=== PATIENT | female | born 2005 | race Caucasian/White ===

== ENCOUNTER 2024-08-24 19:45 | Emergency (ER) | payer MEDICAID ==
[2024-08-24] MEDS ORDERED: Sodium Chloride 0.9% 10 ML Syringe FLUSH PRN (20:19)
[2024-08-24] MEDS: diphenhydrAMINE 50 MG/ML SDV IVPUSH ONE (20:55)
[2024-08-24] MEDS: Ketorolac 30 MG/ML SDV IVPUSH ONE (20:56)
== END 2024-08-24 22:05 | disposition home or self-care (01) ==
LOC: JD.ED 19:45
DX: J02.9 Acute pharyngitis, unspecified (principal); R51.9 Headache, unspecified; Z88.0 Allergy status to penicillin; Z88.1 Allergy status to other antibiotic agents
CPT/HCPCS: 36415; 81025; 86308; 96361; 96374; 96375; 99284; A9270; J1200; J1885; J2765; J7030